=== PATIENT | male | born 1975 | race Caucasian/White ===

== ENCOUNTER 2019-03-07 13:41 | Emergency (ER) | payer OTHER ==
[2019-03-07 14:25] LABS: ABS Basophils 0.1 10^3/ul (0-0.2); ABS Eosinophils 0.1 10^3/ul (0-0.6); ABS Lymphocytes 1.8 10^3/ul (1.0-4.8); ABS Monocytes 0.7 10^3/ul (0-0.8); ABS Neutrophils 4.8 10^3/ul (1.5-7.7); Eosinophil % 1.5 %; Hematocrit 41 % (42-52); Hemoglobin 14.4 g/dL (14.0-18.0); Lymphocyte % 23.9 %; Mean Corpuscular HGB Conc 35 g/dL (31-36); Mean Corpuscular Hemoglobin 29 pg (27-31); Mean Corpuscular Volume 84 fL (80-94); Mean Platelet Volume 7.3 fL (7.4-10.4); Nucleated Red Blood Cells % 0.1; Platelet Count 239 10^3/uL (150-450); Red Blood Count 4.92 10^6 /uL (4.18-5.48); Red Cell Distribution Width 13 % (10-15); White Blood Count 7.5 10^3/uL (3.5-10.8)
[2019-03-07 14:33] LABS: INR 1.17 (0.82-1.09)
[2019-03-07 14:54] LABS: Albumin 4.1 g/dL (3.2-5.2); Albumin/Globulin Ratio 1.2 (1-3); BUN/Creatinine Ratio 18.4 (8-20); Calcium 9.9 mg/dL (8.6-10.3); EGFR African American 134.8 (>60); EGFR Non-African American 111.4 (>60); Globulin 3.5 g/dL (2-4); Total Bilirubin 0.4 mg/dL (0.2-1.0); Total Protein 7.6 g/dL (6.4-8.9)
[2019-03-07 15:29] LABS: Potassium 3.6 mmol/L (3.5-5.0)
--- NOTE | 2019-03-07 17:07 | ED ---
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 Pt reports he began to have diarrhea today. He describes diarrhea as water and nonbloody. Denies fever, nausea, vomiting, chest pain, SOB. Pt states there may be some sick contacts at the group home. PMHx: DM, HTN, CHF, cardiac hx. Pt is on Eliquis, Lasix, and antibiotics. - History of Current Complaint Chief Complaint: EDChestPainROMI Stated Complaint: CHEST AND ABDOMINAL PAIN PER PT Time Seen by Provider: 03/07/19 16:54 Hx Obtained From: Patient Onset/Duration: Lasting Days, Still Present Timing: Lasting Days Severity Currently: Severe Pain Intensity: 10 Pain Scale Used: 0-10 Numeric Location: Discrete At: LUQ Radiates: No Aggravating Factor(s): Nothing Alleviating Factor(s): Nothing Associated Signs And Symptoms: Positive: Diarrhea. Negative: Fever, Chest Pain , Nausea, Vomiting, Other - NEGATIVE: SOB - Allergies/Home Medications Allergies/Adverse Reactions: Allergies Allergy/AdvReac Type Severity Reaction Status Date / Time No Known Allergies Allergy Verified 03/07/19 13:58 Home Medications: Home Medications Apixaban* [Eliquis*] 5 mg PO BID 03/07/19 [History Confirmed 03/07/19] DOXYcycline CAP(*) [DOXYcycline 100MG CAP(*)] 100 mg PO DAILY 03/07/19 [History Confirmed 03/07/19] Digoxin TAB* [Lanoxin TAB*] 0.125 mg PO DAILY 03/07/19 [History Confirmed ] Furosemide TAB* [Lasix TAB*] 40 mg PO BID 03/07/19 [History Confirmed 03/07/19] Losartan TAB* [Cozaar TAB*] 50 mg PO DAILY 03/07/19 [History Confirmed 03/07/19] Metoprolol Succinate XL TAB* [Toprol XL TAB*] 100 mg PO DAILY 03/07/19 [History Confirmed 03/07/19] Potassium 8 meq PO DAILY 03/07/19 [History Confirmed 03/07/19] glipiZIDE TAB* [Glucotrol TAB*] 2.5 mg PO DAILY 03/07/19 [History Confirmed 09/18] metFORMIN* [Glucophage 1000 MG TAB *] 1,000 mg PO BID 03/07/19 [History Confirmed 03/07/19] PMH/Surg Hx/FS Hx/Imm Hx Endocrine/Hematology History: Reports: Hx Diabetes Cardiovascular History: Reports: Hx Congestive Heart Failure, Hx Hypertension Infectious Disease History: No Infectious Disease History: Denies: Traveled Outside the [place] in Last 30 Days - Family History Known Family History: Positive: Cardiac Disease, Hypertension Family History: high cholesterol - Social History Alcohol Use: None Alcohol Amount: h Substance Use Type: Reports: None Smoking Status (MU): Never Smoked Tobacco Review of Systems Negative: Fever Negative: Chest Pain Negative: Shortness Of Breath Positive: Abdominal Pain, Diarrhea. Negative: Vomiting, Nausea All Other Systems Reviewed And Are Negative: Yes Physical Exam - Summary Physical Exam Summary: GENERAL: Patient is a well-developed and nourished male who is lying comfortable in the stretcher. Patient is not in any acute respiratory distress. HEAD AND FACE: No signs of trauma. No ecchymosis, hematomas or skull depressions. No sinus tenderness. EYES: PERRLA, EOMI x 2, No injected conjunctiva, no nystagmus. EARS: Hearing grossly intact. Ear canals and tympanic membranes are within normal limits. MOUTH: Oropharynx within normal limits. NECK: Supple, trachea is midline, no adenopathy, no JVD, no carotid bruit, no c- spine tenderness, neck with full ROM. CHEST: Symmetric, no tenderness at palpation LUNGS: Clear to auscultation bilaterally. No wheezing or crackles. CVS: Regular rate and rhythm, S1 and S2 present, no murmurs or gallops appreciated. ABDOMEN: Soft, LLQ tenderness, slightly distended. No rebound no guarding, and no masses palpated. Bowel sounds are normal. EXTREMITIES: FROM in all major joints, no edema, no cyanosis or clubbing. NEURO: Alert and oriented x 3. No acute neurological deficits. Speech is normal and follows commands. SKIN: Dry and warm Triage Information Reviewed: Yes Vital Signs On Initial Exam: Initial Vitals Temp Pulse Resp BP Pulse Ox 95.8 F 83 18 190/109 96 03/07/19 13:55 03/07/19 13:55 03/07/19 13:55 03/07/19 13:55 03/07/19 13:55 Vital Signs Reviewed: Yes Procedures - Sedation Patient Received Moderate/Deep Sedation with Procedure: No Diagnostics - Vital Signs Vital Signs Temp Pulse Resp BP Pulse Ox 03/07/19 13:55 95.8 F 83 18 190/109 96 - Laboratory Lab Results: Lab Results 03/07/19 03/07/19 03/07/19 Range/Units 14:13 14:13 14:13 WBC 7.5 (3.5-10.8) 10^3/uL RBC 4.92 (4.18-5.48) 10^6 /uL Hgb 14.4 (14.0-18.0) g/dL Hct 41 L (42-52) % MCV 84 (80-94) fL MCH 29 (27-31) pg MCHC 35 (31-36) g/dL RDW 13 (10-15) % Plt Count 239 (150-450) 10^3/uL MPV 7.3 L (7.4-10.4) fL Neut % (Auto) 64.7 % Lymph % (Auto) 23.9 % [place] % (Auto) 9.2 % Eos % (Auto) 1.5 % Baso % (Auto) 0.7 % Absolute Neuts (auto) 4.8 (1.5-7.7) 10^3/ul Absolute Lymphs (auto) 1.8 (1.0-4.8) 10^3/ul Absolute Monos (auto) 0.7 (0-0.8) 10^3/ul Absolute Eos (auto) 0.1 (0-0.6) 10^3/ul Absolute Basos (auto) 0.1 (0-0.2) 10^3/ul Absolute Nucleated RBC 0.0 10^3/ul Nucleated RBC % 0.1 INR (Anticoag Therapy) 1.17 H (0.82-1.09) Sodium 135 (135-145) mmol/L Potassium 3.6 (3.5-5.0) mmol/L Chloride 99 L (101-111) mmol/L Carbon Dioxide 27 (22-32) mmol/L Anion Gap 9 (2-11) mmol/L BUN 14 (6-24) mg/dL Creatinine 0.76 (0.67-1.17) mg/dL Est GFR ( Amer) 134.8 (>60) Est GFR (Non-Af Amer) 111.4 (>60) BUN/Creatinine Ratio 18.4 (8-20) Glucose 241 H (70-100) mg/dL Calcium 9.9 (8.6-10.3) mg/dL Total Bilirubin 0.40 (0.2-1.0) mg/dL AST 24 (13-39) U/L ALT 31 (7-52) U/L Alkaline Phosphatase 92 (34-104) U/L Troponin I 0.00 (<0.03) ng/mL Total Protein 7.6 (6.4-8.9) g/dL Albumin 4.1 (3.2-5.2) g/dL Globulin 3.5 (2-4) g/dL Albumin/Globulin Ratio 1.2 (1-3) Result Diagrams: 03/07/19 14:13 03/07/19 14:13 Lab Statement: Any lab studies that have been ordered have been reviewed, and results considered in the medical decision making process. - CT Abdomen/Pelvis CT CT Interpretation Completed By: Radiologist Summary of CT Findings: IMPRESSION: No acute CT pathology. Dr. Chu has reviewed this report. - EKG 1344 Cardiac Rate: NL - at 82 bpm EKG Rhythm: Sinus Rhythm Summary of EKG Findings: EKG at 1344 shows normal sinus rhythm at a rate of [address] elevations. Q wave in leads III and aVF. 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 Pt reports he began to have diarrhea today. He describes diarrhea as water and nonbloody. Denies fever, nausea, vomiting. Pt states there may be some sick contacts at the group home. PMHx: DM, HTN, CHF, cardiac hx. Pt is on Eliquis, Lasix, and antibiotics. Blood work without any significant abnormality except for hematocrit of 41, chloride 99, glucose 241. Two troponins 4 hours apart is 0.01. EKG shows a normal sinus rhythm without any ST elevations. He has a Q- wave and II and aVF. Abdominopelvic CT impression: No acute CT pathology. Heart score is 2. Patient never complained of chest pain. He complains of left sided abdominal pain. However, the abdominopelvic CT shows no diverticulitis, no kidney stones, no acute intra-abdominal pathology. In the ED course the patient was given [place]. At this point I discussed all my findings and test results with the patient and the need to follow-up with his primary care physician. The patients glucose is elevated at 241 therefore he was recommended to use his diabetic medications. The patient understands and agrees. - Diagnoses Differential Diagnosis/HQI/PQRI: ACS, AMI, Appendicitis, Bowel Obstruction, Constipation, Diverticulitis, Pancreatitis, Renal Colic, Ureteral Stone Provider Diagnoses: Left sided abdominal pain Discharge ED - Sign-Out/Discharge Documenting (check all that apply): Patient Departure - Discharge home - Discharge Plan Condition: Stable Disposition: HOME Patient Education Materials: Abdominal Pain (ED) Referrals: [facility] [Outside] No Primary Care Phys,NOPCP [Primary Care Provider] - Additional Instructions: FOLLOW UP WITH YOUR PRIMARY CARE PROVIDER IN 2-3 DAYS. RETURN TO THE EMERGENCY DEPARTMENT FOR ANY WORSENING OR NEW SYMPTOMS. - Billing Disposition and Condition Condition: STABLE Disposition: Home - Attestation Statements Document Initiated by Bellee: Yes Documenting Scribe: Ernestine Staples Provider For Whom Scribe is Documenting (Include Credential): Lexx Chu MD Scribe Attestation: Ernestine Madrigal scribed for Lexx Chu MD on 03/09/19 at 1850. Scribe Documentation Reviewed: Yes Provider Attestation: The documentation as recorded by the Ernestine olivia accurately reflects the service I personally performed and the decisions made by me, Lexx Chu MD Status of Scribe Document: Viewed
[2019-03-07] MEDS ORDERED: Iodixanol* (CONTRAST) 320 MG/ML 100 ML SDV IV ONE (17:13)
[2019-03-07] MEDS ORDERED: HYDROcodone/ACETAMIN 5-325 MG* 1 TAB PO ONE (18:30)
[2019-03-07 18:47] VITALS: BP 140/72
== END 2019-03-07 19:00 | disposition home or self-care (01) ==
LOC: ED 13:41
DX: R10.12 Left upper quadrant pain (principal); E11.9 Type 2 diabetes mellitus without complications; I11.0 Hypertensive heart disease with heart failure; I50.9 Heart failure, unspecified; Z79.01 Long term (current) use of anticoagulants; Z79.84 Long term (current) use of oral hypoglycemic drugs; Z79.899 Other long term (current) drug therapy
CPT/HCPCS: 36415; 74177; 80053; 84484; 85025; 85610; 93005; 99283; Q9967